=== PATIENT | female | born 1955 | race Caucasian/White ===

== ENCOUNTER 2020-05-12 13:22 | Emergency (ER) | payer MEDICARE, MEDICAID ==
[~2020-05-12] VITALS: Ht 172.7 cm; Wt 95.0 kg
[~2020-05-12 13:22] MED LIST: ASP325TEC; ASPI325T32 PO; GBPN300C; HYDR-3812 PO; HYDR1CAP2; LOVA40TA2 PO; LOVA40TA54 PO; METF-478 PO; MTF500T; SULF1TAB35 PO
[2020-05-12] MEDS ORDERED: fentaNYL INJECTION 100 MCG/2 ML AMP IVP ONE (14:30)
--- NOTE | 2020-05-12 14:44 | NUR ---
UPDATE GIVN TO ELSIE LATHE SANDER.
[2020-05-12 14:49] LABS: BASOPHILS % (AUTO) 1 % (0-10); EOSINOPHILS # (AUTO) 0.1 10^3/uL (0.0-0.3); EOSINOPHILS % (AUTO) 1 % (0-10); HEMATOCRIT 42 % (35-52); HEMOGLOBIN 13.7 G/DL (11.5-16.0); LYMPHOCYTES # (AUTO) 2.5 X 10^3 (1.0-4.0); LYMPHOCYTES % (AUTO) 35 % (12-44); MEAN CORPUSCULAR HEMOGLOBIN 32 PG (25-34); MEAN CORPUSCULAR HGB CONC 33 G/DL (32-36); MEAN CORPUSCULAR VOLUME 97 FL (80-99); MEAN PLATELET VOLUME 9.7 FL (7.4-10.4); MONOCYTES # (AUTO) 0.8 X 10^3 (0.0-1.0); MONOCYTES % (AUTO) 11 % (0-12); NEUTROPHILS # (AUTO) 3.7 X 10^3 (1.8-7.8); NEUTROPHILS % (AUTO) 52 % (42-75); PLATELET COUNT 300 10^3/uL (130-400); RED CELL DISTRIBUTION WIDTH 14.5 % (10.0-14.5); WHITE BLOOD COUNT 7.2 10^3/uL (4.3-11.0)
--- NOTE | 2020-05-12 14:53 | NUR ---
02 PLACED AFTER GIVEN PAIN MEDS SA02 90% 2ND BLOOD CULTURE GIVEN.
[2020-05-12 15:09] LABS: ALANINE AMINOTRANSFERASE 8 U/L (0-55); ALBUMIN 4.1 GM/DL (3.2-4.5); ALKALINE PHOSPHATASE 69 U/L (40-136); BILIRUBIN,TOTAL 0.4 MG/DL (0.1-1.0); BUN/CREATININE RATIO 12; CALCIUM 9.6 MG/DL (8.5-10.1); CARBON DIOXIDE 23 MMOL/L (21-32); CHLORIDE 103 MMOL/L (98-107); CREATININE SERUM 0.67 MG/DL (0.60-1.30); GFR ESTIMATED > 60; GLUCOSE 93 MG/DL (70-105); POTASSIUM 4.2 MMOL/L (3.6-5.0); SODIUM 136 MMOL/L (135-145); TOTAL PROTEIN 8.2 GM/DL (6.4-8.2)
--- NOTE | 2020-05-12 16:02 | NUR ---
REBECCA BRISCOE CALLED IRRIGATION SUPERVISOR AND UPDATE GVEN.
[2020-05-12] MEDS ORDERED: CEPH-507 PO (16:09)
--- NOTE | 2020-05-12 16:10 | ED Lower Extremity ---
General Chief Complaint: Lower Extremity Stated Complaint: L LEFT INFECTION Nursing Triage Note: TO ROOM PER W/C REPORTS WAS DISCHARGE FROM HOSPITAL ON APR 27 WITH L LEG INFECTION CON'T TO HAVE PAIN HAS BEEN WEARING SUPPORT HOSE ON L LEG. REMOVED ON ADMIT TO ROOM REDNESS TO LEG WITH ABRASION LOOKING AREA TO ANKLE AREA. Nursing Sepsis Screen: No Definite Risk Source: patient Exam Limitations: no limitations History of Present Illness Date Seen by Provider: May 12, 2020 Time Seen by Provider: 14:21 Initial Comments 64-year-old female who presents to the emergency room with complaints of cellulitis of left lower leg. She reports that has gotten better but over the past few days has become more inflamed and painful. She does have a slight abrasion to the dorsal surface of the ankle caused by DERRELL hose. She reports that her pain medication is no longer managing her pain. Pain/Injury Location: left leg Method of Injury: unknown Allergies and Home Medications Allergies Coded Allergies: No Known Drug Allergies (Unverified , 02/20/10) Home Medications Aspirin 325 Mg Tablet.dr, 325 MG PO DAILY, (Reported) Hydrocodone/Acetaminophen 1 Each Tablet, 1 EACH PO Q6H PRN for PAIN-MODERATE (5- 7), (Reported) Lovastatin 40 Mg Tablet, 40 MG PO HS, (Reported) Metformin HCl 500 Mg Tab.er.24, 500 MG PO DAILY W/ DINNER, (Reported) Sulfamethoxazole/Trimethoprim 1 Each Tablet, 1 EACH PO BID Prescribed by: GINA CASTANEDA on 04/26/20 1146 Past Yuaegfp-[id number]-Pjzmyb Hx Patient Social History Alcohol Use: Occasionally Uses Recreational Drug Use: No Smoking Status: Current Everyday Smoker 2nd Hand Smoke Exposure: No Recent Foreign Travel: No Contact w/Someone Who Travel: No Recent Infectious Disease Expo: No Recent Hopitalizations: Yes (2009) Immunizations Up To Date Date of Pneumonia Vaccine: Jun 24, 2019 Past Medical History Surgeries: Yes (Hysterectomy 2000, Bladder Repair 2007, Vein Stripping ) Bladder Surgery, Hysterectomy, Vascular Surgery Respiratory: No Cardiac: Yes High Cholesterol Neurological: Yes Reproductive Disorders: No Genitourinary: No Gastrointestinal: No Musculoskeletal: Yes Endocrine: Yes Diabetes, Non-Insulin dep Cancer: No Psychosocial: Yes Depression Integumentary: Yes (lower extremity redness and warmth) Recent Skin Changes Blood Disorders: No Family Medical History Diabetes mellitus 19 MOTHER, , Onset:Unknown Physical Exam Vital Signs Vital Signs - First Documented 05/12/20 13:59 Temp 36.7 Pulse 60 Resp 18 B/P (MAP) 149/96 (113) Pulse Ox 96 O2 Delivery Room Air Capillary Refill : Less Than 3 Seconds Height, Weight, BMI Height: '" Weight: lbs. oz. kg; 31.00 BMI Method:Stated Progress/Results/Core Measures Results/Orders Lab Results Laboratory Tests Test 05/12/20 14:32 Range/Units White Blood Count 7.2 4.3-11.0 10^3/uL Red Blood Count 4.31 L 4.35-5.85 10^6/uL Hemoglobin 13.7 11.5-16.0 G/DL Hematocrit 42 35-52 % Mean Corpuscular Volume 97 80-99 FL Mean Corpuscular Hemoglobin 32 25-34 PG Mean Corpuscular Hemoglobin Concent 33 32-36 G/DL Red Cell Distribution Width 14.5 10.0-14.5 % Platelet Count 300 130-400 10^3/uL Mean Platelet Volume 9.7 7.4-10.4 FL Neutrophils (%) (Auto) 52 42-75 % Lymphocytes (%) (Auto) 35 12-44 % Monocytes (%) (Auto) 11 0-12 % Eosinophils (%) (Auto) 1 0-10 % Basophils (%) (Auto) 1 0-10 % Neutrophils # (Auto) 3.7 1.8-7.8 X 10^3 Lymphocytes # (Auto) 2.5 1.0-4.0 X 10^3 Monocytes # (Auto) 0.8 0.0-1.0 X 10^3 Eosinophils # (Auto) 0.1 0.0-0.3 10^3/uL Basophils # (Auto) 0.0 0.0-0.1 10^3/uL Sodium Level 136 135-145 MMOL/L Potassium Level 4.2 3.6-5.0 MMOL/L Chloride Level 103 98-107 MMOL/L Carbon Dioxide Level 23 21-32 MMOL/L Anion Gap 10 5-14 MMOL/L Blood Urea Nitrogen 8 7-18 MG/DL Creatinine 0.67 0.60-1.30 MG/DL Estimat Glomerular Filtration Rate > 60 BUN/Creatinine Ratio 12 Glucose Level 93 70-105 MG/DL Lactic Acid Level 1.22 0.50-2.00 MMOL/L Calcium Level 9.6 8.5-10.1 MG/DL Corrected Calcium 9.5 8.5-10.1 MG/DL Total Bilirubin 0.4 0.1-1.0 MG/DL Aspartate Amino Transf (AST/SGOT) 11 5-34 U/L Alanine Aminotransferase (ALT/SGPT) 8 0-55 U/L Alkaline Phosphatase 69 40-136 U/L Total Protein 8.2 6.4-8.2 GM/DL Albumin 4.1 3.2-4.5 GM/DL My Orders Orders - REBECCA MCKEON Venous Lower Ext Lt (05/12/20 14:20) Comprehensive Metabolic Panel (05/12/20 14:20) Ed Iv/Invasive Line Start (05/12/20 14:20) Cbc With Automated Diff (05/12/20 14:20) Blood Culture (05/12/20 14:20) Lactic Acid Analyzer (05/12/20 14:20) Fentanyl Injection (Sublimaze Injection (05/12/20 14:30) Medications Given in ED Current Medications Medications Dose Ordered Sig/Jose Route Start Time Stop Time Status Last Admin Dose Admin Fentanyl Citrate 50 mcg ONCE ONCE IVP 05/12/20 14:30 05/12/20 14:31 DC 05/12/20 14:40 50 MCG Vital Signs/I&O 05/12/20 13:59 Temp 36.7 Pulse 60 Resp 18 B/P (MAP) 149/96 (113) Pulse Ox 96 O2 Delivery Room Air Blood Pressure Mean: 113 Departure Impression Primary Impression: Cellulitis of left lower extremity Disposition: 01 HOME, SELF-CARE Condition: Stable/Unchanged Departure-Patient Inst. Decision time for Depature: 16:07 Referrals: MICHELLE WARD MD (PCP/Family) Primary Care Physician Patient Instructions: Cellulitis (Skin Infection), Adult (DC) Add. Discharge Instructions: Take medication as directed. Call today to schedule an appointment with Janina Avitia from [facility] for close follow-up. Continue the use of your home pain medication with additional Tylenol and ibuprofen for pain control. Return back to the emergency room for worsening symptoms or concerns as needed. All discharge instructions reviewed with patient and/or family. Voiced understanding. Scripts Cephalexin (Keflex) 500 Mg Capsule 500 MG PO TID for 7 Days, #21 CAP Prov: REBECCA MCKEON 05/12/20 REBECCA MCKEON May 12, 2020 16:10
[2020-05-12] MEDS ORDERED: cefTRIAXone FOR IV USE 1,000 MG in WATER (STERILE) FOR INJECTION 10 ML IV ONE (16:15)
[2020-05-12 16:19] VITALS: BP 135/80
--- NOTE | 2020-05-12 16:19 | Diagnostic Imaging Report ---
PROCEDURE: US left lower extremity venous. INDICATION: Left leg pain and edema. EXAMINATION: Grayscale and color Doppler evaluation of the deep veins of the left lower extremity were performed with waveform analysis. FINDINGS: Continuous venous flow is present. No intraluminal filling defect is identified. There is normal compressibility and response to augmentation. No abnormal perivascular fluid collection is identified. There are prominent lymph nodes in the left inguinal region. Clinical correlation would be useful. IMPRESSION: No ultrasound evidence of left lower extremity deep venous thrombosis. Dictated by: Dictated on workstation # [id number]
== END 2020-05-12 16:22 | disposition home or self-care (01) ==
LOC: EDUNIT# 13:22 → ER 13:24
DX: L03.116 Cellulitis of left lower limb (principal); S90.512A Abrasion, left ankle, initial encounter; E11.9 Type 2 diabetes mellitus without complications; Z79.84 Long term (current) use of oral hypoglycemic drugs; E78.00 Pure hypercholesterolemia, unspecified; Z79.82 Long term (current) use of aspirin; F17.200 Nicotine dependence, unspecified, uncomplicated; W19.XXXA Unspecified fall, initial encounter
CPT/HCPCS: 36415; 80053; 83605; 85025; 87040

== ENCOUNTER 2020-06-07 11:00 | Day surgery (SDC) | payer MEDICARE, MEDICAID ==
[~2020-06-07] VITALS: Ht 172.7 cm; Wt 94.5 kg
[2020-06-07] VITALS (11 sets, daily range): BP systolic 130–152; BP diastolic 61–92
[2020-06-07 09:38] LABS: HEMOGLOBIN 14.2 G/DL (11.5-16.0); MEAN PLATELET VOLUME 10.3 FL (7.4-10.4); WHITE BLOOD COUNT 7.8 10^3/uL (4.3-11.0)
[2020-06-07 09:56] LABS: PROTHROMBIN TIME PATIENT 13.4 SEC (12.2-14.7)
[2020-06-07 10:02] LABS: ALANINE AMINOTRANSFERASE 8 U/L (0-55); ALBUMIN 4.1 GM/DL (3.2-4.5); ALKALINE PHOSPHATASE 66 U/L (40-136); BILIRUBIN,TOTAL 0.5 MG/DL (0.1-1.0); BUN/CREATININE RATIO 12; CALCIUM 9.3 MG/DL (8.5-10.1); CARBON DIOXIDE 25 MMOL/L (21-32); CHLORIDE 104 MMOL/L (98-107); CHOLESTEROL 162 MG/DL (< 200); CREATININE SERUM 0.75 MG/DL (0.60-1.30); GFR ESTIMATED > 60; GLUCOSE 102 MG/DL (70-105); HDL CHOLESTEROL 42 MG/DL (40-60); POTASSIUM 4.4 MMOL/L (3.6-5.0); SODIUM 140 MMOL/L (135-145); TOTAL PROTEIN 8.2 GM/DL (6.4-8.2); TRIGLYCERIDES 126 MG/DL (<150); VLDL CHOLESTEROL 25 MG/DL (5-40)
[~2020-06-07 11:00] MED LIST changes: +ACHD5005 PO; +CEPH-507 PO; +CLOB15CR3 TP; +DEXT1DRO7 OP; +HEParin (CATH LAB) 2,000 ML IV ONE; -HYDR-3812 PO; +LIDOCAINE 1% INJ 20 ML 20 ML VIAL ONE; +MIDAZOLAM 5 MG/5 ML (VERSED) VIAL ONE; +MUPI15CR11 TP; +NS IV 1000 ML 1,000 ML IV SCH; +NS IV 1000 ML 1,000 ML ONE; +fentaNYL INJECTION 100 MCG/2 ML AMP ONE
--- NOTE | 2020-06-07 11:35 | Cardiac Procedure Note-CS/ASA ---
Pre-Procedure Note Pre-Op Procedure Note H&P Reviewed The H&P was reviewed, patient examined and no changes noted. Date H&P Reviewed: Jun 07, 2020 Time H&P Reviewed: 10:40 Conscious Sedation Pre-Proced Time 10:40 ASA Score 2 For ASA 3 and 4: Consider anesthesia and medical clearance. Also, for patients with a history of failed moderate sedation consider anesthesia. Airway Lungs Heart ASA score ASA 1: a normal healthy patient ASA 2: a patient with a mild systemic disease (mid diabetes, controlled hypertension, obesity ASA 3: a patient with a severe systemic disease that limits activity (angina, COPD, prior Myocardial infarction) ASA 4: a patient with an incapacitating disease that is a constant threat to life (CHF, renal failure) ASA 5: a moribund patient not expected to survive 24 hrs. (ruptured aneurysm) ASA 6: a declared brain- patient whose organs are being harvested. For emergent operations, add the letter E after the classification Mallampati Classification Grade 3 Sedation Plan Analgesia, Amnesia, Plan communicated to team members, Discussed options with patient/fam, Discussed risks with patient/fam The patient is an appropriate candidate to undergo the planned procedure, sedation, and anesthesia. The patient immediately re-assessed prior to indication. ED RODRIGUEZ MD FACP FAC CCDS Jun 07, 2020 11:35
[2020-06-07] MEDS ORDERED: NS IV 1000 ML 1,000 ML IV SCH (11:36)
--- NOTE | 2020-06-07 11:40 | Discharge Inst-Cardiology ---
Discharge Inst-Cardiac Discharge Medications Continued Medications: Aspirin (Aspirin EC) 325 Mg Tablet.dr 325 MG PO DAILY, TAB Clobetasol Propionate/Emoll (Clobetasol Emollient 0.05% Crm) 15 Gm Cream..g. 15 GM TP BID, TUBE Dextran 70/Hypromellose (Artificial Tears) 1 Each Droperette 1 EACH OP PRN for DRY EYES, DROP Hydrocodone/Acetaminophen (Hydrocodone-Acetamin 5-325 mg) 1 Each Tablet 1 EACH PO Q6H PRN for PAIN-MODERATE (5-7), TAB Lovastatin (Lovastatin) 40 Mg Tablet 40 MG PO HS, TAB Mupirocin Calcium (Mupirocin) 15 Gm Cream..g. 15 GM TP TID, TUBE Discontinued Medications: Metformin HCl (Metformin HCl ER) 500 Mg Tab.er.24 500 MG PO DAILY W/ DINNER, TAB Patient Instructions Patient Instructions: Hold METFORMIN until the evening of 06/09/20, then resume previous home dose ED RODRIGUEZ MD FACP FAC CCDS Jun 07, 2020 11:40
--- NOTE | 2020-06-07 11:41 | Discharge Inst-Post CATH ---
Discharge Inst-CATH/EP Post Cardiac Cath/EP D/C Inst Follow Up/Plan F/u with Dr Mcarthur in 1-2 weeks ACTIVITY * Go Home directly and rest. * Limit activity of the leg (or wrist if it was used) for 7 days including aerobics, swimming, jogging, bicycling, etc. * Restrict stair-climbing for 7 days if possible, if not, climb up with your non-cath leg, then bring together on the same step. * Avoid lifting, pushing, pulling or excessive movement of the affected extremity for 7 days. * Customary sexual activity may be resumed after 2 days-use caution not to use a position that strains or causes pain to the affected extremity. * No driving for 24 hours. * NO SMOKING. * Avoid straining for bowel movements for 7 days. * Gentle walking on level ground is allowed. * Returning to work will depend on the type of procedure and the results. Your doctor will discuss this with you. CALL YOUR DOCTOR FOR ANY OF THE FOLLOWING: *If bleeding from the puncture site occurs- Apply gentle pressure to site with clean cloth and call your doctor or EMS. * If a knot or lump forms under the skin, increases in size, or causes pain. * If bruising appears to be worsening or moving further down your leg instead of disappearing. * Temperature above 101 F. CARE OF YOUR GROIN INCISION; * Bruising or purple discoloration of the skin near the puncture site is common. * You may shower only, no bathtub bathing for 5 days. Be careful to avoid slipping as your leg may feel stiff. * If a closure device was used on your femoral artery, please see the attached guide regarding care of the device and your leg. * Leave dressing on FOR 24 hours. CARE OF YOUR WRIST INCISION; * Bruising or purple discoloration of the skin near the puncture site is common. * You may shower. * DO NOT submerge wrist. * Leave dressing on FOR 24 hours. ED MCARTHUR MD FACP FAC CCDS Jun 07, 2020 11:41
[2020-06-07] MEDS ORDERED: PATIENT MAY USE OWN MEDS, ALL PO SCH (11:45)
--- NOTE | 2020-06-07 13:22 | OPERATIVE REPORT ---
DATE OF SERVICE: 06/07/2020 PERIPHERAL ANGIOGRAPHY The patient is a 64-year-old lady who has multiple risk factors for peripheral arterial disease and who has had left leg cellulitis that has not been healing. Noninvasive workup for peripheral arterial disease was reported to have shown monophasic blood flow in the left lower limb. Peripheral angiography was carried out today for evaluation for peripheral arterial disease contributing to her left lower leg cellulitis that has not been healing. Informed consent was obtained. DESCRIPTION OF PROCEDURE: She was brought to the cardiac catheterization laboratory in a fasting state. Right groin was prepared and draped in the usual sterile fashion. Lidocaine 1% for local anesthesia. Modified Seldinger technique was used to advance a 5-Estonian sheath in right femoral artery. A 5-Estonian pigtail catheter was used for abdominal aortic angiography. Pigtail placed at the level of L1. The catheter was then pulled down to just above the level of the aortoiliac bifurcation. Bilateral leg artery angiography was carried out with runoff down to the level of the ankle. The distal circulation in the left leg was not adequately visualized. We used a crossover catheter to advance a Storq wire into the left superficial femoral artery. The wire was then used to advance the straight catheter that was placed in the mid part of the left superficial femoral artery. Selective angiography was then performed with runoff down to the level of the left ankle. The catheter was then removed. Angiography of the right femoral artery was carried out through the sheath. Mynx was used to achieve hemostasis. She tolerated the procedure well. ABDOMINAL AORTIC ANGIOGRAPHY: Abdominal aortic angiography did not indicate any significant abdominal aortic aneurysm or dissection. Renal arteries are identified. They do not exhibit any significant disease. Aortoiliac bifurcation is intact. There is mild atherosclerotic disease involving the common and external iliac arteries on both sides. BILATERAL LEG ARTERY ANGIOGRAPHY: Bilateral leg artery angiography indicated mild atherosclerotic disease involving the iliac arteries on both sides. There is no significant disease involving the femoral arteries or the popliteal arteries or the distal leg arteries. There is a 3-vessel runoff on both sides. CONCLUSIONS: 1. Mild peripheral arterial disease consisting of mild atherosclerotic disease of the iliac arteries. 2. No abdominal aortic aneurysm is seen. 3. Intact renal arteries without significant disease. Job ID: [id number] DocumentID: [id number] Dictated Date: 06/07/2020 11:47:11 Entertainment Lawyer Date: 06/07/2020 13:21:15 Dictated By: ED RODRIGUEZ MD, MA, FACP, FACC,
== END 2020-06-07 15:33 | disposition home or self-care (01) ==
LOC: CATH 11:00 → SDC 11:52 → CATH 15:33
PROVIDERS: ATTEND Internal Medicine Cardiovascular Disease
DX: I70.202 Unspecified atherosclerosis of native arteries of extremities, left leg (principal); L03.116 Cellulitis of left lower limb; E78.5 Hyperlipidemia, unspecified; D68.2 Hereditary deficiency of other clotting factors; E11.40 Type 2 diabetes mellitus with diabetic neuropathy, unspecified; E66.9 Obesity, unspecified; L40.9 Psoriasis, unspecified; F17.210 Nicotine dependence, cigarettes, uncomplicated; Z68.31 Body mass index [BMI] 31.0-31.9, adult; Z86.73 Personal history of transient ischemic attack (TIA), and cerebral infarction without residual deficits; Z79.82 Long term (current) use of aspirin; Z79.899 Other long term (current) drug therapy; Z79.84 Long term (current) use of oral hypoglycemic drugs
CPT/HCPCS: 36247; 75625; 75716; 80053; 80061; 81240; 81241; 85027; 85610; 85730; 87081; C1760; C1769; C1887 ×2; C1894; 36415

== ENCOUNTER → 2022-01-08 | Outpatient (CLI) | payer MEDICARE, MEDICAID ==
[~2022-01-08] MED LIST changes: -HEParin (CATH LAB) 2,000 ML IV ONE; -LIDOCAINE 1% INJ 20 ML 20 ML VIAL ONE; -MIDAZOLAM 5 MG/5 ML (VERSED) VIAL ONE; -NS IV 1000 ML 1,000 ML IV SCH; -NS IV 1000 ML 1,000 ML ONE; -SULF1TAB35 PO; +SULF1TAB38 PO; -fentaNYL INJECTION 100 MCG/2 ML AMP ONE
--- NOTE | 2022-01-08 15:06 | Diagnostic Imaging Report ---
INDICATION: Left wrist cyst, 2 views. FINDINGS: The left wrist demonstrates chronic ulnar styloid fracture. There is no fracture or acute fracture dislocation. Mild degenerative changes are present. There is no foreign body or obvious mass. IMPRESSION: No acute fracture. Dictated by: Dictated on workstation # [id number]
== END ==
LOC: RAD FS 10:31
PROVIDERS: ATTEND Nurse Practitioner
DX: M67.432 Ganglion, left wrist (principal)
CPT/HCPCS: 73110